=== PATIENT | female | born 1990 | race Caucasian/White ===

== ENCOUNTER 2017-02-11 19:07 | Emergency (ER) | payer OTHER ==
[~2017-02-11] VITALS: Ht 160 cm; Wt 61.9 kg
[~2017-02-11 19:07] MED LIST: FLEXERIL5 MG PO; GABAPENTIN600 MG PO; MOTRIN800 MG PO; PRENATAL 1-1 T1 EACH PO; PRENATAL1 EACH PO; TRAZODONE HCL300 MG PO; ZOLOFT100 MG PO
[2017-02-11] MEDS ORDERED: KEFLEX500 MG PO (21:32)
[2017-02-11] MEDS ORDERED: MOTRIN600 MG PO (21:32)
[2017-02-11 21:39] VITALS: BP 109/74
== END 2017-02-11 21:40 | disposition home or self-care (01) ==
LOC: EXP 19:07 → EME 19:07 → EXP 21:40
PROC: 3E0234Z Introduction of Serum, Toxoid and Vaccine into Muscle, Percutaneous Approach (ICD-10-PCS; principal; 2017-02-11)
DX: S61.011A Laceration without foreign body of right thumb without damage to nail, initial encounter (principal); L08.9 Local infection of the skin and subcutaneous tissue, unspecified; W25.XXXA Contact with sharp glass, initial encounter; F17.200 Nicotine dependence, unspecified, uncomplicated
CPT/HCPCS: 99281; 99283